=== PATIENT | male | born 1975 | race Caucasian/White ===

== ENCOUNTER → 2024-10-24 14:43 | Outpatient (CLI) | payer OTHER, SELFPAY ==
--- NOTE | 2024-10-24 14:44 | DI.RAD.S_ITS ---
PROCEDURE: XR ANKLE RT MIN 3V INDICATIONS: Right ankle swelling/pain TECHNIQUE: 3 views of the ankle were acquired. COMPARISON: None. FINDINGS: Bones: No fractures or dislocations. Ankle mortise is normally aligned. No suspicious bony lesions. Tiny plantar calcaneal enthesophyte is seen. Soft tissues: Soft tissue swelling around ankle joint is seen. No tibiotalar joint effusion. Achilles tendon appears normal. IMPRESSION: Ankle soft tissue swelling. No acute ankle fracture or dislocation. Ankle mortise is congruent. Tiny plantar calcaneal enthesophyte. Dictated by: Rudolph Gold M.D. on 10/25/2024 at 10:17 Approved by: Rudolph Gold M.D. on 10/25/2024 at 10:18
== END ==
LOC: RAD 14:44
PROVIDERS: PCP Family Medicine; Referring Provider Nurse Practitioner Family; Visit Provider Nurse Practitioner Family
DX: M25.471 Effusion, right ankle (principal); M79.89 Other specified soft tissue disorders
CPT/HCPCS: 73610